=== PATIENT | male | born 1960 | race Caucasian/White ===

== ENCOUNTER 2021-05-19 09:31 | Outpatient (CLI) | payer OTHER | END 2021-05-19 09:32 | disposition home or self-care (01) | LOC: TBSIIMAG 09:31 | PROVIDERS: ATTEND Orthopaedic Surgery | DX: M48.061 Spinal stenosis, lumbar region without neurogenic claudication (principal); S32.011A Stable burst fracture of first lumbar vertebra, initial encounter for closed fracture; M47.816 Spondylosis without myelopathy or radiculopathy, lumbar region | CPT/HCPCS: 72148 ==

== ENCOUNTER 2021-05-19 18:21 | Emergency (ER) | payer OTHER | END 2021-05-19 22:31 | disposition home or self-care (01) | LOC: ERS 18:21 | DX: S32.019A Unspecified fracture of first lumbar vertebra, initial encounter for closed fracture (principal); I10 Essential (primary) hypertension; W19.XXXA Unspecified fall, initial encounter | CPT/HCPCS: 99283 ==

== ENCOUNTER 2021-08-04 09:03 | Outpatient (CLI) | payer SELFPAY | END 2021-08-04 09:04 | disposition home or self-care (01) | LOC: TBSIIMAG 09:03 | PROVIDERS: ATTEND Neurological Surgery | DX: S22.009A Unspecified fracture of unspecified thoracic vertebra, initial encounter for closed fracture (principal); S32.009A Unspecified fracture of unspecified lumbar vertebra, initial encounter for closed fracture | CPT/HCPCS: 72100 ==

== ENCOUNTER 2021-09-14 11:22 | Outpatient (CLI) | payer SELFPAY | END 2021-09-14 11:23 | disposition home or self-care (01) | LOC: TBSIIMAG 11:22 | PROVIDERS: ATTEND Physician Assistant | DX: S22.008A Other fracture of unspecified thoracic vertebra, initial encounter for closed fracture (principal); M25.422 Effusion, left elbow; M47.816 Spondylosis without myelopathy or radiculopathy, lumbar region | CPT/HCPCS: 72100 ==

== ENCOUNTER 2021-11-03 09:18 | Outpatient (CLI) | payer SELFPAY | END 2021-11-03 09:19 | disposition home or self-care (01) | LOC: TBSIIMAG 09:18 | PROVIDERS: ATTEND Physician Assistant | DX: S22.089D Unspecified fracture of T11-T12 vertebra, subsequent encounter for fracture with routine healing (principal); S32.019D Unspecified fracture of first lumbar vertebra, subsequent encounter for fracture with routine healing; M47.816 Spondylosis without myelopathy or radiculopathy, lumbar region | CPT/HCPCS: 72100 ==